=== PATIENT | female | born 1995 | race Caucasian/White ===

== ENCOUNTER 2016-07-02 10:34 | Emergency (ER) | payer MEDICAID ==
[2016-07-02] MEDS ORDERED: Ondansetron INJ* 2 MG/ML VIAL IV ONE (11:59)
[2016-07-02] MEDS ORDERED: NS 0.9% 1000 ML* 1,000 ML IV ONE (11:59)
[2016-07-02] MEDS ORDERED: Morphine INJ* 2 MG/ML 1 ML SYRINGE IV ONE (12:01)
[2016-07-02 12:46] LABS: Hematocrit 42 % (35-47); Hemoglobin 13.5 g/dl (12.0-16.0); Mean Corpuscular HGB Conc 32 g/dl (31-36); Mean Corpuscular Hemoglobin 26 pg (27-31); Mean Corpuscular Volume 81 fL (80-97); Mean Platelet Volume 9 um3 (7.4-10.4); Red Blood Count 5.18 10^6/ul (4.0-5.4); Red Cell Distribution Width 14 % (10.5-15); White Blood Count 13.1 10^3/ul (3.5-10.8)
--- NOTE | 2016-07-02 12:49 | RAD ---
INDICATION: No bowel movement for 4 days pain in the left lower quadrant. COMPARISON: There are no prior studies available for comparison. TECHNIQUE: Supine and upright views of the abdomen were obtained. FINDINGS: The small bowel and colon appear nondistended. There is a moderate amount of retained stool. No free intraperitoneal air is seen. No abnormal calcifications are seen. IMPRESSION: NO EVIDENCE FOR ACUTE FINDING.
[2016-07-02 13:03] LABS: ALT 30 U/L (7-52); AST 22 U/L (13-39); Albumin 4.9 g/dL (3.2-5.2); Alkaline Phosphatase 91 U/L (34-104); Anion Gap 6 mmol/L (2-11); BUN/Creatinine Ratio 10.9 (8-20); Blood Urea Nitrogen 7 mg/dL (6-24); C Reactive Protein 5.87 mg/L (< 5.00); CO2 Carbon Dioxide 29 mmol/L (22-32); Calcium 9.9 mg/dL (8.6-10.3); Chloride 100 mmol/L (101-111); EGFR African American 153.7 (>60); EGFR Non-African American 119.5 (>60); Globulin 3.6 g/dL (2-4); Glucose 80 mg/dL (70-100); Lipase 10 U/L (11.0-82.0); Potassium 3.9 mmol/L (3.5-5.0); Sodium 135 mmol/L (133-145); Total Protein 8.5 g/dL (6.4-8.9)
[2016-07-02 13:17] VITALS: BP 107/56
[2016-07-02 13:42] LABS: Urine Bilirubin Negative (Negative); Urine Glucose Negative (Negative); Urine Nitrite Negative (Negative)
--- NOTE | 2016-07-02 15:19 | RAD ---
INDICATION: Left adnexal pain shifting to midline. Evaluate for acute appendicitis COMPARISON: None TECHNIQUE: Transverse and longitudinal scans of the right lower quadrant were performed utilizing grayscale and color Doppler imaging. FINDINGS: There is nonvisualization of the appendix. There is no free fluid. Suggest surgical referral if there is concern of acute appendicitis. IMPRESSION: INCONCLUSIVE EXAMINATION. THE APPENDIX IS NOT IDENTIFIED.
--- NOTE | 2016-07-02 15:22 | RAD ---
INDICATION: Left adnexal pain. Midline abdominal pain. COMPARISON: Abdomen July 02, 2016 TECHNIQUE: Longitudinal and transverse transvaginal scans of the pelvis were obtained. FINDINGS: Uterus: The uterus is normal in size. There are no focal masses. The uterus measures 6.4 x 2.8 x 4.2 cm. Endometrial thickness: The endometrial thickness is measured at 1.2 cm. . Free fluid: There is no significant free fluid . Ovaries: The ovaries are normal in size. The right ovary measures 2.9 x 1.4 x 1.8 cm. The left ovary measures 4.9 x 2.1 x 3.1 cm. There is a complex cystic or solid lesion left ovary measuring 2.5 x 1.8 x 2.2 cm. An involuting or hemorrhagic cyst is considered statistically most likely. Suggest follow-up in 2-3 menstrual cycles.. Doppler interrogation demonstrates flow to each ovary. Other: None IMPRESSION: COMPLEX CYSTIC OR SOLID ENTITY LEFT OVARY MEASURING 2.5 CM. SUGGEST FOLLOW-UP. NO FINDINGS OF TORSION.
--- NOTE | 2016-07-10 15:56 | ED ---
Abdominal Pain/Female - HPI Summary HPI Summary: PATIENT ARRIVES FROM WITH CC OF SUPRAPUBIC ABDOMINAL PAIN WHICH STARTED 2 DAYS AGO AND HAS BEEN CONSTANT. SHE WAS SEEN AT WHO STATED SHE HAD RLQ TENDERNESS AND SENT HER TO ED FOR EVALUATION. ON ARRIVAL, PATIENT STATES HER PAIN IS SUPRAPUBIC AND WORSE WITH MOVEMENT. SHE ALSO NOTES THAT SHE HAS HAD CONSTIPATION WITH LAST BM X4 DAYS AGO. SHE HAS BEEN EATING AND DRINKING OK. LMP 2 WEEKS AGO AND WITHOUT COMPLICATIONS. DENIES CHANCE OF . DENIES ABDOMINAL SURGERIES. DENIES CHANCE OF STI'S. PAIN IS LOCATED SUPRAPUBICALLY AND DOES NOT RADIATE. PAIN IS NOT BETTER OR WORSE WITH EATING AND SHE DENIES FEVER, TRAVEL, NECK PAIN N/V/D. - History of Current Complaint Chief Complaint: EDAbdPain Stated Complaint: ABDOMINAL PAIN COMMINF FROM IC Time Seen by Provider: 07/02/16 11:00 Hx Obtained From: Patient ?: No Onset/Duration: Sudden Onset Timing: Constant Severity Initially: Moderate Severity Currently: Moderate Pain Intensity: 4 Pain Scale Used: 0-10 Numeric Location: Suprapubic Radiates: No Character: Cramping Aggravating Factor(s): Nothing Alleviating Factor(s): Spontaneous Resolution Associated Signs and Symptoms: Positive: Constipation - Risk Factors Ectopic Risk Factor: Negative Ovarian Torsion Risk Factor: Reproductive Age Allergies/Adverse Reactions: Allergies Allergy/AdvReac Type Severity Reaction Status Date / Time No Known Allergies Allergy Verified 07/02/16 12:26 PMH/Surg Hx/FS Hx/Imm Hx Previously Healthy: Yes GI History: Denies: Other GI Disorders Infectious Disease History: No Infectious Disease History: Denies: Traveled Outside the US in Last 30 Days - Social History Occupation: Student Lives: With Family Alcohol Use: None Hx Substance Use: No Substance Use Type: Reports: None Hx Tobacco Use: No Smoking Status (MU): Never Smoked Tobacco Review of Systems Constitutional: Negative Eyes: Negative Cardiovascular: Negative Respiratory: Negative Positive: Abdominal Pain, Other - CONSTIPATION Positive: no symptoms reported, see HPI Musculoskeletal: Negative Skin: Negative Psychological: Normal All Other Systems Reviewed And Are Negative: Yes Physical Exam Triage Information Reviewed: Yes Vital Signs On Initial Exam: Initial Vitals Temp Pulse Resp BP Pulse Ox 97.7 F 103 16 126/81 100 07/02/16 10:37 07/02/16 10:37 07/02/16 10:37 07/02/16 10:37 07/02/16 10:37 Vital Signs Reviewed: Yes Appearance: Positive: Well-Appearing, No Pain Distress, Well-Nourished Skin: Positive: Warm, Skin Color Reflects Adequate Perfusion Head/Face: Positive: Normal Head/Face Inspection Eyes: Positive: Normal, EOMI, Conjunctiva Clear Neck: Positive: Nontender, No Lymphadenopathy Respiratory/Lung Sounds: Positive: Clear to Auscultation, Breath Sounds Present Cardiovascular: Positive: Normal, RRR Abdomen Description: Positive: Soft, Other: - NO TENDERNESS AT [place], SLIGHT TENDERNESS SUPRPUBICALLY ON DEEP PALPATION, NO TENDERNESS IN ALL 4 QUADRANTS AND LIGHT OR DEEP PALPATION, NEGATIVE MURPHYS, NEGATIVE OBTURATOR AND PSOAS, SPLEEN NOT PALPATED, NO PAIN EPIGASTRICALLY AND DEEP PALPATION Bowel Sounds: Positive: Hypoactive Musculoskeletal: Positive: Normal Neurological: Positive: Sensory/Motor Intact, Alert, Oriented to Person Place, Time, CN Intact II-III, Normal Gait, Facial Symmetry, Speech Normal Psychiatric: Positive: Affect/Mood Appropriate AVPU Assessment: Alert - Duong Coma Scale Coma Scale Total: 15 Diagnostics - Vital Signs Vital Signs Temp Pulse Resp BP Pulse Ox 07/02/16 13:00 86 107/56 100 07/02/16 12:54 96 123/79 100 07/02/16 12:48 20 07/02/16 12:00 99 99 07/02/16 11:38 98.6 F 95 20 116/66 100 07/02/16 11:37 98.6 F 95 20 116/66 100 07/02/16 11:20 98.6 F 07/02/16 11:06 95 100 07/02/16 11:04 116/66 07/02/16 10:37 97.7 F 103 16 126/81 100 - Laboratory Lab Results: Lab Results 07/02/16 07/02/16 07/02/16 Range/Units 12:34 12:34 13:30 WBC 13.1 H (3.5-10.8) 10^3/ul RBC 5.18 (4.0-5.4) 10^6/ul Hgb 13.5 (12.0-16.0) g/dl Hct 42 (35-47) % MCV 81 (80-97) fL MCH 26 L (27-31) pg MCHC 32 (31-36) g/dl RDW 14 (10.5-15) % Plt Count 377 (150-450) 10^3/ul MPV 9 (7.4-10.4) um3 Neut % (Auto) 73.0 (38-83) % Lymph % (Auto) 17.4 L (25-47) % [place] % (Auto) 7.9 (1-9) % Eos % (Auto) 1.0 (0-6) % Baso % (Auto) 0.7 (0-2) % Absolute Neuts (auto) 9.6 H (1.5-7.7) 10^3/ul Absolute Lymphs (auto) 2.3 (1.0-4.8) 10^3/ul Absolute Monos (auto) 1.0 H (0-0.8) 10^3/ul Absolute Eos (auto) 0.1 (0-0.6) 10^3/ul Absolute Basos (auto) 0.1 (0-0.2) 10^3/ul Absolute Nucleated RBC 0.01 10^3/ul Nucleated RBC % 0.1 Sodium 135 (133-145) mmol/L Potassium 3.9 (3.5-5.0) mmol/L Chloride 100 L (101-111) mmol/L Carbon Dioxide 29 (22-32) mmol/L Anion Gap 6 (2-11) mmol/L BUN 7 (6-24) mg/dL Creatinine 0.64 (0.51-0.95) mg/dL Est GFR ( Amer) 153.7 (>60) Est GFR (Non-Af Amer) 119.5 (>60) BUN/Creatinine Ratio 10.9 (8-20) Glucose 80 (70-100) mg/dL Calcium 9.9 (8.6-10.3) mg/dL Total Bilirubin 0.60 (0.2-1.0) mg/dL AST 22 (13-39) U/L ALT 30 (7-52) U/L Alkaline Phosphatase 91 (34-104) U/L C-Reactive Protein 5.87 H (< 5.00) mg/L Total Protein 8.5 (6.4-8.9) g/dL Albumin 4.9 (3.2-5.2) g/dL Globulin 3.6 (2-4) g/dL Albumin/Globulin Ratio 1.4 (1-3) Lipase 10 L (11.0-82.0) U/L Beta HCG, Quant < 0.60 mIU/mL Urine Color Yellow Urine Appearance Clear Urine pH 7.0 (5-9) Ur Specific [place] 1.020 (1.010-1.030) Urine Protein Negative (Negative) Urine Ketones Negative (Negative) Urine Blood Negative (Negative) Urine Nitrate Negative (Negative) Urine Bilirubin Negative (Negative) Urine Urobilinogen Negative (Negative) Ur Leukocyte Esterase Negative (Negative) Urine Glucose Negative (Negative) C.trachomatis (Amp Det) (Negative) N.gonorrhoeae (Amp Det) (Negative) 07/02/16 Range/Units 13:30 WBC (3.5-10.8) 10^3/ul RBC (4.0-5.4) 10^6/ul Hgb (12.0-16.0) g/dl Hct (35-47) % MCV (80-97) fL MCH (27-31) pg MCHC (31-36) g/dl RDW (10.5-15) % Plt Count (150-450) 10^3/ul MPV (7.4-10.4) um3 Neut % (Auto) (38-83) % Lymph % (Auto) (25-47) % [place] % (Auto) (1-9) % Eos % (Auto) (0-6) % Baso % (Auto) (0-2) % Absolute Neuts (auto) (1.5-7.7) 10^3/ul Absolute Lymphs (auto) (1.0-4.8) 10^3/ul Absolute Monos (auto) (0-0.8) 10^3/ul Absolute Eos (auto) (0-0.6) 10^3/ul Absolute Basos (auto) (0-0.2) 10^3/ul Absolute Nucleated RBC 10^3/ul Nucleated RBC % Sodium (133-145) mmol/L Potassium (3.5-5.0) mmol/L Chloride (101-111) mmol/L Carbon Dioxide (22-32) mmol/L Anion Gap (2-11) mmol/L BUN (6-24) mg/dL Creatinine (0.51-0.95) mg/dL Est GFR ( Amer) (>60) Est GFR (Non-Af Amer) (>60) BUN/Creatinine Ratio (8-20) Glucose (70-100) mg/dL Calcium (8.6-10.3) mg/dL Total Bilirubin (0.2-1.0) mg/dL AST (13-39) U/L ALT (7-52) U/L Alkaline Phosphatase (34-104) U/L C-Reactive Protein (< 5.00) mg/L Total Protein (6.4-8.9) g/dL Albumin (3.2-5.2) g/dL Globulin (2-4) g/dL Albumin/Globulin Ratio (1-3) Lipase (11.0-82.0) U/L Beta HCG, Quant mIU/mL Urine Color Urine Appearance Urine pH (5-9) Ur Specific [place] (1.010-1.030) Urine Protein (Negative) Urine Ketones (Negative) Urine Blood (Negative) Urine Nitrate (Negative) Urine Bilirubin (Negative) Urine Urobilinogen (Negative) Ur Leukocyte Esterase (Negative) Urine Glucose (Negative) C.trachomatis (Amp Det) Negative (Negative) N.gonorrhoeae (Amp Det) Negative (Negative) Result Diagrams: 07/02/16 12:34 07/02/16 12:34 Lab Statement: Any lab studies that have been ordered have been reviewed, and results considered in the medical decision making process. Abdominal Pain Fem Course/Dx - Course Course Of Treatment: ABDOMINAL XRAY SHOWS MODERATE AMOUNT OF STOOL. TRANSVAGINAL US PERFORMED D/T CONTINUING PAIN AND WBC AT 13. COMPLEX CYSTIC OR SOLID ENTITY LEFT OVARY MEASURING 2.5 CM AND SUGGESTED FOLLOW UP. IT IS UNKNOWN IF THIS IS CAUSING THE DISCOMFORT. PATIENT IS ENCOURAGED TO FOLLOW UP WITH OBGYN FOR FURTHER EVALUATION. PATIENT OK FOR DISCHARGE AND ABDOMINAL PAIN A 2/10. MORPHINE GIVEN DURING STAY WHICH HELPED PAIN. PATIENT ENCOURAGED TO TAKE SENNA FOR RELIEF OF MILD CONSTIPATION. - Diagnoses Differential Diagnosis: Positive: Appendicitis, Constipation, Ovarian Cyst, Renal Colic Provider Diagnoses: Ovarian cyst Discharge - Discharge Plan Condition: Stable Disposition: HOME Patient Education Materials: Ovarian Cyst (ED), Constipation (ED) Referrals: Kaiden Haji MD [Medical Doctor] - No Primary Care Phys,NOPCP [Primary Care Provider] - Additional Instructions: SENNA over the counter for constipation. Follow up with OBGYN regarding cyst on left ovary. Tylenol as needed for discomfort.
== END 2016-07-02 15:51 | disposition home or self-care (01) ==
LOC: ED 10:34
DX: N83.209 Unspecified ovarian cyst, unspecified side (principal); R10.31 Right lower quadrant pain; K59.00 Constipation, unspecified
CPT/HCPCS: 36415; 74020; 76705; 76830; 80053; 81003; 83690; 84702; 85025; 86140; 87491; 87591; 96374; 96375; 99282; J2270; J2405

== ENCOUNTER 2017-04-13 19:02 | Inpatient (IN) | payer MEDICAID ==
--- NOTE | 2017-04-13 20:15 | ED ---
Psychiatric Complaint - HPI Summary HPI Summary: 21F presents with suicidal ideation today. She states she has a plan but would not act on and has no way of acting on it. She states has had suicidal ideation in the past but has never acted on such. she states one of her friends called the hair blender on her because thought was going to jump of building. She denies any drug or ETOH use. She has family history of depression. - History Of Current Complaint Chief Complaint: EDMentalHealth Time Seen by Provider: 04/13/17 19:16 - Allergies/Home Medications Allergies/Adverse Reactions: Allergies Allergy/AdvReac Type Severity Reaction Status Date / Time No Known Allergies Allergy Verified 04/13/17 19:14 PMH/Surg Hx/FS Hx/Imm Hx Endocrine/Hematology History: Denies: Hx Anticoagulant Therapy Cardiovascular History: Denies: Hx Myocardial Infarction GI History: Denies: Other GI Disorders Psychiatric History: Reports: Hx Depression Infectious Disease History: No Infectious Disease History: Denies: Traveled Outside the US in Last 30 Days - Family History Known Family History: Positive: Other - depression - Social History Alcohol Use: None Hx Substance Use: No Substance Use Type: Reports: None Hx Tobacco Use: No Smoking Status (MU): Never Smoked Tobacco Review of Systems Negative: Fever Negative: Chest Pain Negative: Shortness Of Breath Positive: Depressed All Other Systems Reviewed And Are Negative: Yes Physical Exam Triage Information Reviewed: Yes Vital Signs On Initial Exam: Initial Vitals Temp Pulse Resp BP Pulse Ox 98.1 F 104 16 130/87 98 04/13/17 19:07 04/13/17 19:07 04/13/17 19:07 04/13/17 19:07 04/13/17 19:07 Vital Signs Reviewed: Yes Appearance: Positive: Well-Appearing Skin: Positive: Warm, Dry Head/Face: Positive: Normal Head/Face Inspection Eyes: Positive: Normal, Conjunctiva Clear Respiratory/Lung Sounds: Positive: Clear to Auscultation, Breath Sounds Present Cardiovascular: Positive: Normal, RRR Abdomen Description: Positive: Nontender, Soft Bowel Sounds: Positive: Present Musculoskeletal: Positive: Normal Neurological: Positive: Normal Psychiatric: Positive: Depressed Diagnostics - Vital Signs Vital Signs Temp Pulse Resp BP Pulse Ox 04/13/17 19:07 98.1 F 104 16 130/87 98 - Laboratory Result Diagrams: 04/13/17 20:07 04/13/17 20:07 Lab Statement: Any lab studies that have been ordered have been reviewed, and results considered in the medical decision making process. Course/Dx - Course Course Of Treatment: 21F presents with suicidal ideation today. She states she has a plan but would not act on and has no way of acting on it. She states has had suicidal ideation in the past but has never acted on such. she states one of her friends called the hair blender on her because thought was going to jump of building. She denies any drug or ETOH use. She has family history of depression. normal PE. medically clear for MHE. mental health felt that patient needed to be admitted - Differential Dx/Clinical Impression Differential Diagnosis/HQI/PQRI: Positive: Anxiety, Depression, Suicidal Ideation Provider Diagnosis: Depression Discharge - Discharge Plan Condition: Stable [place] [facility] [place]: No Primary Care Phys,NOPCP [Primary Care Provider] -
[2017-04-13 20:21] LABS: ABS Basophils 0.1 10^3/ul (0-0.2); ABS Eosinophils 0.2 10^3/ul (0-0.6); ABS Lymphocytes 1.4 10^3/ul (1.0-4.8); ABS Monocytes 0.5 10^3/ul (0-0.8); ABS Neutrophils 5.7 10^3/ul (1.5-7.7); ABS Nucleated RBC 0 10^3/ul; Hematocrit 42 % (35-47); Hemoglobin 13.5 g/dl (12.0-16.0); Lymphocyte % 18.1 % (25-47); Mean Corpuscular HGB Conc 33 g/dl (31-36); Mean Corpuscular Hemoglobin 26 pg (27-31); Mean Corpuscular Volume 81 fL (80-97); Mean Platelet Volume 9 um3 (7.4-10.4); Nucleated Red Blood Cells % 0.3; Platelet Count 335 10^3/ul (150-450); Red Blood Count 5.15 10^6/ul (4.0-5.4); Red Cell Distribution Width 16 % (10.5-15)
[2017-04-13 20:22] LABS: Urine Appearance Clear; Urine Blood Negative (Negative); Urine Color Yellow; Urine Ketones Negative (Negative); Urine Protein Negative (Negative); Urine Specific Gravity 1.016 (1.010-1.030); Urine Urobilinogen Negative (Negative)
[2017-04-14] MEDS: Propranolol TAB* 20 MG PO PRN (04:05)
[2017-04-14] MEDS ORDERED: Acetaminophen TAB* 325 MG PO PRN (06:38)
[2017-04-14] MEDS ORDERED: Al Hydrox/Mg Hydrox/Simet LIQ* 30 ML UDC PO PRN (06:38)
[2017-04-14] MEDS: Vitamin THERAPEUTIC TAB PO SCH (08:37)
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
[2017-04-15] MEDS: BuPROPion XL* 300 MG TAB.XL PO SCH (09:04)
[2017-04-15] MEDS: Vitamin THERAPEUTIC TAB PO SCH (09:04)
--- NOTE | 2017-04-15 13:21 | PN ---
Subjective - Subjective Date of Service: 04/15/17 Service Type: 85888 Hosp care 25 min moderate complexity Subjective: Claudia denies suicidality. She is mostly seclusive on the unit, believing that she is just here to be punished for making suicidal statements to a friend. I was able to speak with her outpatient campus psychiatrist at , Dr. Speedy Ahumada. He concurs with the perception of the patient as overly-systematized, rigid and formulaic when it comes to interpersonal interactions and perceives her as being on the autism spectrum. During my session with Claudia I confront her with printed copies of her text messages to her friend in [place], which are clearly suicidal in nature and discuss a scheme in which she would kill herself , "option B," if she scored enough points in that category over a ten day period , versus staying alive, "option A," if she scored more points in that column. The patient continues to be upset with her friend for sharing these communications. "He should know better. We're in the Millennial generation. People talk like this all the time." The patient requests and is granted privileges to use her computer and phone to contact entry level financial analyst for the upcoming school semester. Objective - Appearance Appearance: Thin Framed Dysmorphic Features: No Hygiene: Normal Grooming: Fairly Well Kept - Behavior Psychomotor Activities: Abnormal-Decreased Exhibits Abnormal Movement: No - Attitude and Relatedness Attitude and Relatedness: Cooperative Eye Contact: Fair - Speech Quality: Unpressured Latencies: Normal Quantity: Appropriate - Mood Patient's Decription of Mood: "Fine" - Affect Observed Affect: Constricted Affect Consistent with: Dysphoria - Thought Process Patient's Thought Process: Coherent Thought Content: No Passive Wish, No Suicidal Planning, No Homicidal Ideation, No Paranoid Ideation - Sensorium Experiencing Hallucinations: No, Sensorium is Clear Type of Hallucinations: Visual: No, Auditory: No, Command: No - Level of Consciousness Level of Consciousness: Alert Orientation: Yes Intact, Yes Orientated to Time, Yes Orientated to Place, Yes Orientated to Person - Impulse Control Impulse Control: Tenuous - Insight and Judgement Insight and Judgement: Fair - Group Participation Particating in Group Activities: No - Medication Management Medication Management Adherence: Yes Assessment - Assessment Merits Inpatient Hospitalization: Consolidate Improvements, Pending Safe DC Plan Inpatient DSM-IV Dx: MDD, single episode, severe without psychotic features Clinical Impression: 21 y.o. single, bisexual female [employer] undergraduate in Computer Science studies who was brought as a 9.41 by campus police after texting several suicidal statements to an online friend. Plan - Plan Treatment Plan: Name: CLAUDIA CABRERA Birthdate: 1995 [id number] The patient is kept on her outpatient regimen of bupropion XL 300mg PO qam and prn propranolol for anxiety. We await recent psych testing documents from [facility]. Will consider d/c tomorrow, 04/16, if still denying SI. Continued Medication Management: Continue Outpt Medication Medications: Current Medications Acetaminophen (Tylenol Tab*) 650 mg PO Q4H PRN PRN Reason: PAIN or TEMP > 101 F Al Hydrox/Mg Hydrox/Simethicone (Maalox Plus*) 30 ml PO Q4H PRN PRN Reason: INDIGESTION Bupropion HCl (Bupropion Xl*) 300 mg PO DAILY MAX PRN Reason: Protocol Last Admin: 04/15/17 09:04 Dose: 300 mg Multivitamins (Theragran Tab*) 1 tab PO DAILY MAX Last Admin: 04/15/17 09:04 Dose: 1 tab Propranolol HCl (Inderal Tab*) 20 mg PO DAILY PRN PRN Reason: ANXIETY Last Admin: 04/14/17 04:05 Dose: 20 mg - Discharge Plan Discharge Plan: Inpatient Hospitalization
[2017-04-15] MEDS: Propranolol TAB* 20 MG PO PRN (23:01)
[2017-04-16 07:51] VITALS: BP 110/67
[2017-04-16] MEDS: Vitamin THERAPEUTIC TAB PO SCH (09:04)
[2017-04-16] MEDS: BuPROPion XL* 300 MG TAB.XL PO SCH (09:04)
--- NOTE | 2017-04-16 11:13 | PN ---
MHU: Group Therapy Note - Service Type Service Type: [id number] Group Psychotherapy - Cognitive Behavioral Group Therapy ( CBT):Patient was attentive and participatory in CBT programming this morning, and remained in good behavioral control. Patient expressed positive insights regarding relevant treatment interventions and goals.
[2017-04-16] MEDS: Propranolol TAB* 20 MG PO PRN (12:16)
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
== END 2017-04-16 13:45 | disposition home or self-care (01) | DRG 751 ==
LOC: ED 19:02 → BSU 04-14 03:41
PROVIDERS: ADMIT Psychiatry & Neurology Psychiatry; ATTEND Psychiatry & Neurology Psychiatry
PROC: GZHZZZZ Group Psychotherapy (ICD-10-PCS; principal; 2017-04-16)
DX: F32.2 Major depressive disorder, single episode, severe without psychotic features (principal); R45.851 Suicidal ideations; F84.0 Autistic disorder; F41.9 Anxiety disorder, unspecified; Z62.810 Personal history of physical and sexual abuse in childhood; Z81.8 Family history of other mental and behavioral disorders
CPT/HCPCS: 36415; 80053; 80307; 80320; 80329; 81003; 84443; 85025; 99284; A9270-GY; G0480

== ENCOUNTER 2018-08-02 17:09 | Emergency (ER) | payer SELFPAY ==
--- NOTE | 2018-08-02 17:18 | ED ---
Psychiatric Complaint - HPI Summary HPI Summary: This patient is a 22 year old female LESIAA presenting to [facility] with a chief complaint of panic attack. The patient was at [facility] when she had a panic attack, likely due to stress from school. The patient has a Hx of anxiety and depression. Patient is currently anxious. The patient denies N/V/D, cough. - History Of Current Complaint Hx Obtained From: Patient Severity Initially: Moderate Severity Currently: Mild Character: Anxious Aggravating Factor(s): Recent Stress Has Suicidal: Denies: Thoughts, With A Plan - Allergies/Home Medications Allergies/Adverse Reactions: Allergies Allergy/AdvReac Type Severity Reaction Status Date / Time No Known Allergies Allergy Verified 04/14/17 12:21 Home Medications: Home Medications Escitalopram * [Lexapro 10 mg (NF)] 10 mg PO DAILY 08/02/18 [History Confirmed 08/02/18] PMH/Surg Hx/FS Hx/Imm Hx Endocrine/Hematology History: Denies: Hx Anticoagulant Therapy Cardiovascular History: Denies: Hx Myocardial Infarction GI History: Denies: Other GI Disorders Sensory History: Reports: Hx Contacts or Glasses Denies: Hx Hearing Aid Opthamlomology History: Reports: Hx Contacts or Glasses Psychiatric History: Reports: Hx Anxiety, Hx Eating Disorder, Hx Depression, Hx Suicide Attempt, Hx of Violent Episodes Against Others - Family History Known Family History: Positive: Other - depression - Social History Alcohol Use: Weekly Alcohol Amount: 1-2 shots of vodka 1-2 times per week. Hx Substance Use: No Substance Use Type: Reports: None Hx Tobacco Use: No Smoking Status (MU): Never Smoked Tobacco Have You Smoked in the Last Year: No Review of Systems Negative: Fever Positive: Anxious All Other Systems Reviewed And Are Negative: Yes Physical Exam - Summary Physical Exam Summary: VITAL SIGNS: Reviewed. GENERAL: Patient is a well-developed and nourished FEMALE who is lying comfortable in the stretcher. Patient is not in any acute respiratory distress. Aooears slightly intoxicated. HEAD AND FACE: No signs of trauma. No ecchymosis, hematomas or skull depressions. No sinus tenderness. EYES: PERRLA, EOMI x 2, No injected conjunctiva, no nystagmus. EARS: Hearing grossly intact. Ear canals and tympanic membranes are within normal limits. NECK: Supple, trachea is midline, no adenopathy, no JVD, no carotid bruit, no c- spine tenderness, neck with full ROM. MOUTH: Oropharynx within normal limits. CHEST: Symmetric, no tenderness at palpation LUNGS: Clear to auscultation bilaterally. No wheezing or crackles. CVS: Regular rate and rhythm, S1 and S2 present, no murmurs or gallops appreciated. ABDOMEN: Soft, non-tender. No signs of distention. No rebound no guarding, and no masses palpated. Bowel sounds are normal. EXTREMITIES: FROM in all major joints, no edema, no cyanosis or clubbing. NEURO: Alert and oriented x 3. No acute neurological deficits. Speech is normal and follows commands. SKIN: Dry and warm PSYCH: Hyperactive, denies any suicidal thoughts or plan. No homicidal thoughts or plan. No signs of psychosis or pressure speech. No tangential speech. Triage Information Reviewed: Yes Vital Signs On Initial Exam: Initial Vital Signs Temp 98.3 F 08/02/18 17:20 Pulse 122 08/02/18 17:20 Resp 20 08/02/18 17:20 BP 137/92 08/02/18 17:20 Pulse Ox 98 08/02/18 17:20 Vital Signs Reviewed: Yes Diagnostics - Laboratory Result Diagrams: 08/02/18 17:28 08/02/18 17:28 Lab Statement: Any lab studies that have been ordered have been reviewed, and results considered in the medical decision making process. Course/Dx - Course Assessment/Plan: Blood work w/o a significant abnormality. She is medically cleared. She is awaiting for a [facility]HE. Patient is hemodynamically stable and A+O x 3. Dr. Pierre (Psychiatry) assess patient and clear the patient and recommends to discharge the patient home with outpatient follow up. - Differential Dx/Clinical Impression Differential Diagnosis/HQI/PQRI: Positive: Acute Psychosis, Anxiety, Depression Provider Diagnosis: MDD (major depressive disorder), recurrent episode, Depressive disorder Discharge - Sign-Out/Discharge Documenting (check all that apply): Patient Departure - Discharge, per MHE Patient Received Moderate/Deep Sedation with Procedure: No - Discharge Plan Condition: Stable Disposition: HOME Referrals: No Primary Care Phys,NOPCP [Primary Care Provider] - - Billing Disposition and Condition Condition: STABLE Disposition: Home - Attestation Statements Document Initiated by Scribe: Yes Documenting Scribe: Alexis Bills Provider For Whom Scribe is Documenting (Include Credential): Marc Jennings MD Scribe Attestation: I, Alexis Bills, scribed for Marc Jennings MD on 08/02/18 at 2111. Scribe Documentation Reviewed: Yes Provider Attestation: The documentation as recorded by the scribeAlexis accurately reflects the service I personally performed and the decisions made by me, Marc Jennings MD Status of Scribe Document: Viewed
[2018-08-02 17:40] LABS: ABS Eosinophils 0.1 10^3/ul (0-0.6); ABS Lymphocytes 1.1 10^3/ul (1.0-4.8); ABS Monocytes 0.8 10^3/ul (0-0.8); ABS Neutrophils 8.8 10^3/ul (1.5-7.7); Hematocrit 42 % (35-47); Hemoglobin 13.5 g/dL (12.0-16.0); Lymphocyte % 10.4 %; Mean Corpuscular HGB Conc 32 g/dL (31-36); Mean Corpuscular Hemoglobin 27 pg (27-31); Mean Corpuscular Volume 84 fL (80-97); Nucleated Red Blood Cells % 0.1; Platelet Count 383 10^3/uL (150-450); Red Blood Count 5.03 10^6 /uL (3.70-4.87); Red Cell Distribution Width 14 % (10.5-15); White Blood Count 10.8 10^3/uL (3.5-10.8)
[2018-08-02 17:55] LABS: Urine Appearance Cloudy; Urine Bacteria Absent (Absent); Urine Bilirubin Negative (Negative); Urine Blood Negative (Negative); Urine Color Yellow; Urine Glucose Negative (Negative); Urine Ketones Negative (Negative); Urine Nitrite Negative (Negative); Urine Protein 1+(30 mg/dL) (Negative); Urine Red Blood Cell 1+(3-5/hpf) (Absent); Urine Squamous Epithelial Cell Present (Absent); Urine Urobilinogen Negative (Negative); Urine White Blood Cell Trace(0-5/hpf) (Absent)
[2018-08-02 17:59] LABS: ALT 14 U/L (7-52); AST 18 U/L (13-39); Albumin 5.1 g/dL (3.2-5.2); Albumin/Globulin Ratio 1.8 (1-3); Alkaline Phosphatase 82 U/L (34-104); Anion Gap 10 mmol/L (2-11); BUN/Creatinine Ratio 8.6 (8-20); Blood Urea Nitrogen 7 mg/dL (6-24); CO2 Carbon Dioxide 25 mmol/L (22-32); Calcium 9.7 mg/dL (8.6-10.3); Chloride 105 mmol/L (101-111); EGFR Non-African American 89.3 (>60); Globulin 2.8 g/dL (2-4); Glucose 71 mg/dL (70-100); Potassium 4.2 mmol/L (3.5-5.0); Sodium 140 mmol/L (135-145); Total Protein 7.9 g/dL (6.4-8.9)
[2018-08-02 18:14] LABS: Alcohol 73 mg/dL (<10); Salicylate < 2.50 mg/dL (<30)
[2018-08-02 18:19] LABS: Acetaminophen < 15 mcg/mL
[2018-08-02 18:20] LABS: Urine Benzodiazepine Screen None Detected (None Detect); Urine Opiates Screen None Detected (None Detect)
[2018-08-02 18:29] LABS: TSH (Thyroid Stimulating Horm) 0.23 mcIU/mL (0.34-5.60)
[2018-08-02 21:59] VITALS: BP 116/62
== END 2018-08-02 21:24 | disposition home or self-care (01) ==
LOC: ED 17:09
DX: F32.9 Major depressive disorder, single episode, unspecified (principal); F41.9 Anxiety disorder, unspecified; Z91.5 Personal history of self-harm
CPT/HCPCS: 36415; 80053; 80307; 80320; 80329; 81003; 81015; 84443; 85025; 86703; 87086; 99285; G0480